=== PATIENT | female | born 1985 ===

== ENCOUNTER 2018-10-09 00:48 | Emergency (ER) | payer OTHER ==
[2018-10-09] MEDS ORDERED: DECADRON IM ONE (04:30)
[2018-10-09] MEDS ORDERED: TORADOL IM ONE (04:31)
--- NOTE | 2018-10-09 04:49 | Emergency Department Report ---
ED ENT HPI - General Chief complaint: Dental/Oral Stated complaint: TOOTH PAIN/NECK PAIN/EYE PAIN Time Seen by Provider: 10/09/18 04:10 Source: patient Mode of arrival: Ambulatory Limitations: No Limitations - History of Present Illness Initial comments: Patient is a 32-year-old -[place] female with no past medical history presents to the ED with a complaint of acute onset persistent severe pain. I'll attempt left mandibular gums and premolar molar toothaches for the last 1 week. Patient states that she's been taking OTC pain medications and some prescription pain medications with no relief. Patient states that in the last 2 nights she has not been able to sleep because of severe pain. Patient denies dizziness, fever, chills, nausea, vomiting, chest pain, shortness of breath, or change in vision and neck pain. MD complaint: tooth pain, other (left mandibular premolar and molar toothache, swollen gums) -: Sudden, week(s) (1) Location: tooth # (premolar, and molar toothache) 1 - Painful swollen gums; Premolar and molar toothache Severity: severe Severity scale (0 -10): 7 Quality: aching, sharp, constant Consistency: constant Improves with: none Worsens with: swallowing, movement Context- Dental: trauma, poor dental care Associated Symptoms: gum swelling, toothache, pain with swallowing. denies: discharge from ear, rhinorrhea - Related Data Previous Rx's Medication Instructions Recorded Last Taken Type Acetaminophen/Codeine [Tylenol 1 tab PO Q6H PRN #15 tab 10/09/18 Unknown Rx /Codeine # 3 tab] Amoxicillin [Trimox CAP] 500 mg PO Q8H #30 capsule 10/09/18 Unknown Rx Ketorolac [Toradol] 10 mg PO Q8H PRN #20 tablet 10/09/18 Unknown Rx methylPREDNISolone [Medrol] 4 mg PO DAILY #21 tab.ds.pk 10/09/18 Unknown Rx Allergies Allergy/AdvReac Type Severity Reaction Status Date / Time milk Allergy Unknown Verified 10/09/18 00:56 ED Dental HPI - General Chief complaint: Dental/Oral Stated complaint: TOOTH PAIN/NECK PAIN/EYE PAIN Time Seen by Provider: 10/09/18 04:10 Source: patient Mode of arrival: Ambulatory Limitations: No Limitations - History of Present Illness Initial comments: Patient is a 32-year-old -[place] female with no past medical history presents to the ED with a complaint of acute onset persistent severe pain. I'll attempt left mandibular gums and premolar molar toothaches for the last 1 week. Patient states that she's been taking OTC pain medications and some prescript ion pain medications with no relief. Patient states that in the last 2 nights she has not been able to sleep because of severe pain. Patient denies dizziness, fever, chills, nausea, vomiting, chest pain, shortness of breath, or change in vision and neck pain. MD complaint: tooth pain -: Sudden, week(s) (1) 1 - Swollen left mandibular gums Severity: severe Quality: aching, sharp (left mandibular), constant Consistency: constant Improves with: NSAID Worsens with: eating Context- Dental: history of dental caries Dental Associated Symptons: Yes: Headache, Gum Swelling - Related Data Previous Rx's Medication Instructions Recorded Last Taken Type Acetaminophen/Codeine [Tylenol 1 tab PO Q6H PRN #15 tab 10/09/18 Unknown Rx /Codeine # 3 tab] Amoxicillin [Trimox CAP] 500 mg PO Q8H #30 capsule 10/09/18 Unknown Rx Ketorolac [Toradol] 10 mg PO Q8H PRN #20 tablet 10/09/18 Unknown Rx methylPREDNISolone [Medrol] 4 mg PO DAILY #21 tab.ds.pk 10/09/18 Unknown Rx Allergies Allergy/AdvReac Type Severity Reaction Status Date / Time milk Allergy Unknown Verified 10/09/18 00:56 ED Review of Systems ROS: Stated complaint: TOOTH PAIN/NECK PAIN/EYE PAIN Other details as noted in HPI Comment: All other systems reviewed and negative Constitutional: no symptoms reported, see HPI. denies: chills, diaphoresis, fever, malaise, weakness Eyes: as per HPI. denies: eye pain, eye discharge, vision change ENT: as per HPI, dental pain. denies: ear pain, throat pain, hearing loss, congestion Respiratory: no symptoms reported, see HPI. denies: cough, orthopnea, shortness of breath, SOB with exertion, SOB at rest, wheezing Cardiovascular: as per HPI. denies: chest pain, palpitations, dyspnea on exertion, orthopnea, edema, syncope, paroxysmal nocturnal dyspnea Endocrine: no symptoms reported, see HPI. denies: excessive sweating, flushing, intolerance to cold, increased hunger, increased urine, unexplained weight gain, unexplained weight loss Gastrointestinal: as per HPI. denies: abdominal pain, nausea, vomiting, diarrhe a, constipation, hematemesis, hematochezia Genitourinary: as per HPI. denies: urgency, dysuria, frequency, hematuria, discharge, dyspareunia Musculoskeletal: as per HPI. denies: back pain, joint swelling, arthralgia Skin: as per HPI. denies: rash, lesions, pruritus Neurological: as per HPI, headache. denies: weakness, numbness, paresthesias, confusion, vertigo, other Psychiatric: as per HPI Hematological/Lymphatic: as per HPI ED Past Medical Hx - Past Medical History Previous Medical History?: No - Surgical History Past Surgical History?: Yes Hx Breast Surgery: Yes Additional Surgical History: cervical CA - Social History Smoking Status: Never Smoker Substance Use Type: None - Medications Home Medications: Home Medications Medication Instructions Recorded Confirmed Last Taken Type Acetaminophen/Codeine [Tylenol 1 tab PO Q6H PRN #15 tab 10/09/18 Unknown Rx /Codeine # 3 tab] Amoxicillin [Trimox CAP] 500 mg PO Q8H #30 capsule 10/09/18 Unknown Rx Ketorolac [Toradol] 10 mg PO Q8H PRN #20 tablet 10/09/18 Unknown Rx methylPREDNISolone [Medrol] 4 mg PO DAILY #21 tab.ds.pk 10/09/18 Unknown Rx ED Physical Exam - General Limitations: No Limitations General appearance: alert, in no apparent distress - Head Head exam: Present: atraumatic, normocephalic, normal inspection - Eye Eye exam: Present: normal appearance, PERRL, EOMI. Absent: scleral icterus, conjunctival injection, nystagmus Pupils: Present: normal accommodation - ENT ENT exam: Present: normal exam, normal orophraynx, mucous membranes moist, TM's normal bilaterally, normal external ear exam, other (Swollen, tender left mandibular gums, palpable tenderness of left premolar and molar mandibular teeth) - Neck Neck exam: Present: normal inspection, full ROM. Absent: tenderness, meningismus, lymphadenopathy, thyromegaly - Respiratory Respiratory exam: Present: normal lung sounds bilaterally. Absent: wheezes, rhonchi, chest wall tenderness, prolonged expiratory - Cardiovascular Cardiovascular Exam: Present: regular rate, normal rhythm, normal heart sounds - GI/Abdominal GI/Abdominal exam: Present: soft. Absent: tenderness, guarding, rebound, hyperactive bowel sounds, hypoactive bowel sounds, organomegaly - Rectal Rectal exam: Present: deferred - Extremities Exam Extremities exam: Present: normal inspection, full ROM, normal capillary refill - Back Exam Back exam: Present: normal inspection, full ROM. Absent: tenderness, CVA tenderness (R), CVA tenderness (L), muscle spasm, paraspinal tenderness, vertebral tenderness, rash noted - Neurological Exam Neurological exam: Present: alert, oriented X3, CN II-XII intact, normal gait, reflexes normal - Psychiatric Psychiatric exam: Present: normal affect. Absent: anxious, flat affect, manic - Skin Skin exam: Present: warm, dry, intact, normal color ED Course Vital Signs 10/09/18 00:57 Temperature 97.7 F Pulse Rate 71 Respiratory 18 Rate Blood Pressure 164/99 [Right] O2 Sat by Pulse 100 Oximetry - Reevaluation(s) Reevaluation #1: 10/09/18 04:54 Patient is alert and oriented 3 and is not in distress with a slightly elevated blood pressure because of pain. Patient was treated for pain and discharged home on pain medications and antibiotics. Patient advised to follow-up with her dentist in 7-10 days for reevaluation and treatment. Patient advised to return to the ED immediately if symptoms get worse. ED Medical Decision Making - Medical Decision Making Patient is alert and oriented 3 and is not in distress with a slightly elevated blood pressure because of pain. Patient was treated for pain and discharged home on pain medications and antibiotics. Patient advised to follow-up with her dentist in 7-10 days for reevaluation and treatment. Patient advised to return to the ED immediately if symptoms get worse. - Differential Diagnosis gingivitis, dental abscess, dental caries Critical care attestation.: If time is entered above; I have spent that time in minutes in the direct care of this critically ill patient, excluding procedure time. ED Disposition Clinical Impression: Dental abscess, Dental caries, Chronic gingivitis Disposition: TO HOME OR SELFCARE Is pt being admited?: No Does the pt Need Aspirin: No Condition: Stable Instructions: Gingivitis (ED), Dental Abscess (ED), Dental Caries (ED) Additional Instructions: Take medications, drink plenty of fluids and follow-up with your primary care physician or dentist in 7-10 days for reevaluation. Return to the ED immediately if symptoms get worse. Prescriptions: methylPREDNISolone [Medrol] 4 mg PO DAILY #21 tab.ds.pk Ketorolac [Toradol] 10 mg PO Q8H PRN #20 tablet PRN Reason: Pain Amoxicillin [Trimox CAP] 500 mg PO Q8H #30 capsule Acetaminophen/Codeine [Tylenol /Codeine # 3 tab] 1 tab PO Q6H PRN #15 tab PRN Reason: Pain , Severe (7-10) Referrals: [facility] MD BLANCO [Primary Care Provider] - 3-5 Days Forms: Work/School Release Form(ED) Time of Disposition: 04:57 Print Language: CONGOLESE
[2018-10-09 05:28] VITALS: BP 159/93
== END 2018-10-09 05:11 | disposition home or self-care (01) ==
LOC: ED 00:48
DX: K04.7 Periapical abscess without sinus (principal); K02.9 Dental caries, unspecified; K05.10 Chronic gingivitis, plaque induced; Z91.011 Allergy to milk products
CPT/HCPCS: 96372; 99282; J1100; J1885